=== PATIENT | female | born 1975 | race American Indian/Alaskan Native ===

== ENCOUNTER 2021-12-17 14:14 | Emergency (ER) | payer SELFPAY ==
[2021-12-17 14:24] VITALS: BP 117/81
[2021-12-17 16:03] LABS: Hematocrit 26.3 % (35.5-45.6); Hemoglobin 8.1 gm/dl (11.8-15.2); Mean Corpuscular HGB Conc 31 % (32-34); Platelet Count 395 K/mm3 (140-440); Red Blood Count 4.33 M/mm3 (3.65-5.03); Red Cell Distribution Width 19.7 % (13.2-15.2)
[2021-12-17 16:06] LABS: BUN/Creatinine Ratio 16; Blood Urea Nitrogen 13 mg/dL (9-20); Calcium 8.8 mg/dL (8.4-10.2); Hemolysis Index 1
[2021-12-17 16:19] LABS: Mean Corpuscular Volume 61 fl (84-94)
== END 2021-12-17 23:20 | disposition left against medical advice (07) ==
LOC: EDSEX → ED 14:14
DX: R10.9 Unspecified abdominal pain (principal); Z53.21 Procedure and treatment not carried out due to patient leaving prior to being seen by health care provider
CPT/HCPCS: 36415; 80048; 84702; 85027